=== PATIENT | male | born 1970 | race Caucasian/White ===

== ENCOUNTER 2022-06-12 02:08 | Emergency (ER) | payer MEDICARE, OTHER ==
[~2022-06-12 02:08] MED LIST: ACIDOPHILUS X-1 EACH PO; BACTRIM DS TAB1 EACH PO; LEVAQUIN500 MG PO; ZYVOX600 MG PO
[2022-06-12 04:56] LABS: HEMOGLOBIN 14.9 gm/dl (14.0-17.5); RED BLOOD COUNT 4.76 M/UL (4.20-5.50); WHITE BLOOD COUNT 12.4 K/UL (4.5-11.0)
== END 2022-06-12 05:22 | disposition home or self-care (01) ==
LOC: ER1 02:08
PROVIDERS: Physician Assistant
DX: D18.09 Hemangioma of other sites (principal); Z86.73 Personal history of transient ischemic attack (TIA), and cerebral infarction without residual deficits
CPT/HCPCS: 81001; 85025; 87086; 99283